=== PATIENT | female | born 2000 | race Two or more races ===

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

== ENCOUNTER 2022-07-25 21:04 | Emergency (ER) | payer OTHER ==
[2022-07-25 22:18] VITALS: BMI 26.2
[2022-07-25] MEDS ORDERED: ACETAMINOPHEN 1000 MG/100 ML BAG IVPB ONE (23:23)
[2022-07-25] MEDS ORDERED: SODIUM CHLORIDE 0.9% 500 ML INFUS.BAG IV ONE (23:23)
[2022-07-26] MEDS ORDERED: ACETAMINOPHEN INJECTION 100 ML IVPB ONE (00:13)
[2022-07-26 00:43] LABS: BASO % 0.4 % (0-2.0); EOS % 3.5 % (0-4.5); HEMATOCRIT 42.1 % (32.4-45.2); HEMOGLOBIN 14.3 GM/dL (10.7-15.3); MCH 30.4 pg (25.7-33.7); MEAN CELL VOLUME 89.5 fl (80-96); MEAN PLT VOLUME 7.1 fl (7.5-11.1); MONO % 8.9 % (3.8-10.2); NEUT % 54.2 % (42.8-82.8); PLATELET COUNT 286 10^3/uL (134-434); RBC 4.71 M/mm3 (3.60-5.2); WHITE BLOOD COUNT 10.5 K/mm3 (4.0-10.0)
[2022-07-26 01:02] LABS: CHLORIDE 105 mmol/L (98-107); SODIUM 139 mmol/L (136-145)
[2022-07-26 01:04] LABS: CALCIUM 9.2 mg/dL (8.5-10.1)
[2022-07-26 01:05] LABS: ALBUMIN 3.9 g/dl (3.4-5.0); ANION GAP 7 MMOL/L (8-16); BLOOD UREA NITROGEN 10.3 mg/dL (7-18); CO2 27 mmol/L (21-32); GLUCOSE,RANDOM 85 mg/dL (74-106); LIPASE 163 U/L (73-393); MAGNESIUM 2.1 mg/dL (1.8-2.4)
[2022-07-26 01:07] LABS: CREATININE 0.5 mg/dL (0.55-1.3); SGPT/ALT 27 U/L (13-61)
[2022-07-26 01:08] LABS: SGOT/AST 20 U/L (15-37)
[2022-07-26 01:09] LABS: BILIRUBIN,TOTAL 0.3 mg/dL (0.2-1); TOT PROT 7.4 g/dl (6.4-8.2)
[2022-07-26 01:10] LABS: ALK PHOS 66 U/L (45-117)
[2022-07-26 01:29] VITALS: BP 96/54; PULSE 79; RESP 16; TEMP 98.2
[2022-07-26 02:07] LABS: URINE APPEARANCE CLEAR; URINE BILIRUBIN NEGATIVE (NEGATIVE); URINE COLOR YELLOW; URINE GLUCOSE (UA) NEGATIVE (NEGATIVE); URINE KETONE 1+ (NEGATIVE); URINE LEUK ESTERASE NEGATIVE (NEGATIVE); URINE NITRITE NEGATIVE (NEGATIVE); URINE PROTEIN NEGATIVE (NEGATIVE); URINE UROBILINOGEN 0.2 mg/dL (0.2-1.0)
[2022-07-26 02:15] LABS: HCG,QUALITATIVE URINE Negative
== END 2022-07-26 05:33 | disposition home or self-care (01) ==
LOC: JER 21:04
PROC: 3E0333Z Introduction of Anti-inflammatory into Peripheral Vein, Percutaneous Approach (ICD-10-PCS; principal; 2022-07-25)
DX: N83.209 Unspecified ovarian cyst, unspecified side (principal)
CPT/HCPCS: 36415; 74177-TC; 76830-TC; 80053; 81003; 83690; 83735; 84702; 84703; 85025; 87077; 87086; 99285-25

== ENCOUNTER 2022-09-24 17:26 | Emergency (ER) | payer OTHER ==
[2022-09-24 17:54] VITALS: BP 96/66; PULSE 88; RESP 17; TEMP 98.2; BMI 27.2
[2022-09-24 19:53] LABS: BASO % 0.4 % (0-2.0); EOS % 4.6 % (0-4.5); HEMATOCRIT 40.3 % (32.4-45.2); HEMOGLOBIN 13.5 GM/dL (10.7-15.3); LYMPH % 34.2 % (8-40); MCH 30.3 pg (25.7-33.7); MCHC 33.6 g/dl (32.0-36.0); MEAN CELL VOLUME 90.3 fl (80-96); MEAN PLT VOLUME 7.2 fl (7.5-11.1); MONO % 8.2 % (3.8-10.2); NEUT % 52.6 % (42.8-82.8); PLATELET COUNT 306 10^3/uL (134-434); RBC 4.47 M/mm3 (3.60-5.2); RDW 13.2 % (11.6-15.6); WHITE BLOOD COUNT 8.7 K/mm3 (4.0-10.0)
[2022-09-24 19:57] LABS: EPI CELLS >36 /uL (0-25.1); HYALINE CASTS 3 /uL (0-3.1); URINE APPEARANCE CLEAR; URINE BACTERIA 1343 /uL (0-1359); URINE BILIRUBIN NEGATIVE (NEGATIVE); URINE COLOR YELLOW; URINE GLUCOSE (UA) NEGATIVE (NEGATIVE); URINE KETONE TRACE (NEGATIVE); URINE LEUK ESTERASE NEGATIVE (NEGATIVE); URINE NITRITE NEGATIVE (NEGATIVE); URINE PROTEIN NEGATIVE (NEGATIVE); URINE RBC 70 /uL (0-23.9); URINE UROBILINOGEN 0.2 mg/dL (0.2-1.0); URINE WBC 36 /uL (0-25.8)
[2022-09-24 19:58] LABS: HCG,QUALITATIVE URINE Negative
[2022-09-24 20:11] LABS: CALCIUM 8.9 mg/dL (8.5-10.1)
[2022-09-24 20:12] LABS: ALBUMIN 3.8 g/dl (3.4-5.0); BLOOD UREA NITROGEN 16.7 mg/dL (7-18); MAGNESIUM 2.1 mg/dL (1.8-2.4)
[2022-09-24 20:15] LABS: CREATININE 0.7 mg/dL (0.55-1.3); PHOSPHOROUS 3.7 mg/dL (2.5-4.9)
[2022-09-24 20:16] LABS: BILIRUBIN,TOTAL 0.3 mg/dL (0.2-1)
[2022-09-24 20:17] LABS: TOT PROT 7.2 g/dl (6.4-8.2)
== END 2022-09-24 21:14 | disposition home or self-care (01) ==
LOC: JER 17:26 → JERFT 17:26
DX: R53.83 Other fatigue (principal)
CPT/HCPCS: 0241U-QW; 36415; 80053; 81003; 83735; 84100; 84443; 84703; 85025; 86850; 86900; 86901; 99283-25

== ENCOUNTER 2023-05-14 21:50 | Emergency (ER) | payer OTHER ==
[2023-05-14 21:57] VITALS: BP 102/69; PULSE 83; RESP 18; TEMP 98.3; BMI 31.5
[2023-05-14] MEDS ORDERED: DIPHTH,PERTUSS(ACELL),TET 0.5 ML DISP.SYRIN IM ONE ×2 (23:36→23:38)
[2023-05-14] MEDS ORDERED: RABIES IMMUNE GLOBULIN 300 UNITS/1 ML VIAL IM ONE (23:42)
[2023-05-14] MEDS ORDERED: RABIES VACCINE (PCEC)/PF 2.5 UNIT/VIAL IM ONE ×2 (23:44→23:45)
[2023-05-14] MEDS ORDERED: RABIES IMMUNE GLOBULIN 300 UNITS/1 ML VIAL ONE (23:47)
[2023-05-15] MEDS ORDERED: RABIES IMMUNE GLOBULIN 300 UNITS/1 ML VIAL ONE (00:56)
[2023-05-15] MEDS ORDERED: AMOX TR/POT CLAV 875MG/125MG TABLETS (FP) PO ONE (01:05)
[2023-05-15] MEDS ORDERED: AMOX TR/POT CLAV 875MG/125MG TABLETS (FP) ONE (01:17)
== END 2023-05-15 01:18 | disposition home or self-care (01) ==
LOC: JERFT 21:50
PROC: 3E0234Z Introduction of Serum, Toxoid and Vaccine into Muscle, Percutaneous Approach (ICD-10-PCS; principal; 2023-05-14)
PROC: 3E0234Z Introduction of Serum, Toxoid and Vaccine into Muscle, Percutaneous Approach (ICD-10-PCS; 2023-05-14)
DX: S61.551A Open bite of right wrist, initial encounter (principal); S51.851A Open bite of right forearm, initial encounter; W55.01XA Bitten by cat, initial encounter
CPT/HCPCS: 90375; 90675; 90715

== ENCOUNTER 2023-05-28 21:28 | Emergency (ER) | payer OTHER ==
[2023-05-28 21:44] VITALS: BP 101/62; PULSE 72; RESP 18; TEMP 98; BMI 30.2
[2023-05-28] MEDS ORDERED: RABIES VACCINE (PCEC)/PF 2.5 UNIT/VIAL IM ONE ×2 (22:08→22:12)
== END 2023-05-28 22:27 | disposition home or self-care (01) ==
LOC: JERFT 21:28 → JER 21:28 → JERFT 22:27
PROC: 3E0234Z Introduction of Serum, Toxoid and Vaccine into Muscle, Percutaneous Approach (ICD-10-PCS; principal; 2023-05-28)
DX: Z23 Encounter for immunization (principal)
CPT/HCPCS: 90675; 99281-25

== ENCOUNTER 2023-08-20 17:58 | Emergency (ER) | payer OTHER ==
[2023-08-20 18:16] VITALS: BP 99/67; PULSE 98; RESP 24; TEMP 98.2; BMI 29.2
[2023-08-20] MEDS ORDERED: MAGNESIUM SULF 50% (8.12 MEQ/2 ML-1 GM VIAL) IVPB ONE (18:50)
[2023-08-20] MEDS ORDERED: methylPREDNISolone NA SUCC 125 MG/2 ML VIAL IVPUSH ONE (18:50)
[2023-08-20] MEDS ORDERED: MAGNESIUM SULFATE IN WATER 2 GM/50 ML IVPB IVPB ONE (19:31)
[2023-08-20] MEDS ORDERED: methylPREDNISolone NA SUCC 125 MG/2 ML VIAL ONE (19:31)
[2023-08-20] MEDS ORDERED: ALBUTEROL SO4 2.5/IPRATROPIUM 0.5 INH SOL 3 ML VIAL.NEB. NEB ONE (19:31)
[2023-08-20] MEDS: ALBUTEROL SO4 2.5/IPRATROPIUM 0.5 INH SOL 3 ML VIAL.NEB. NEB SCH ×2 (19:40→19:56)
[2023-08-20 19:44] LABS: BASO % 0.5 % (0-2.0); EOS % 5.1 % (0-4.5); HEMATOCRIT 43.3 % (32.4-45.2); HEMOGLOBIN 14.7 GM/dL (10.7-15.3); MCH 29.9 pg (25.7-33.7); MEAN CELL VOLUME 87.9 fl (80-96); MONO % 6.3 % (3.8-10.2); NEUT % 60.1 % (42.8-82.8); PLATELET COUNT 334 10^3/uL (134-434); RBC 4.93 M/mm3 (3.60-5.2); RDW 12.8 % (11.6-15.6); WHITE BLOOD COUNT 10.2 K/mm3 (4.0-10.0)
[2023-08-20 20:20] LABS: POTASSIUM 4.2 mmol/L (3.5-5.1)
[2023-08-20 20:21] LABS: CALCIUM 9.4 mg/dL (8.5-10.1)
[2023-08-20 20:22] LABS: BLOOD UREA NITROGEN 10.8 mg/dL (7-18); MAGNESIUM 2.1 mg/dL (1.8-2.4)
[2023-08-20 20:25] LABS: CREATININE 0.7 mg/dL (0.55-1.3)
[2023-08-20 20:26] LABS: BILIRUBIN,TOTAL 0.2 mg/dL (0.2-1)
[2023-08-20] MEDS ORDERED: ALBUTEROL SO4 0.083% IH SOL 2.5 MG/3 ML VIAL.NEB. NEB ONE ×2 (20:49→20:59)
[2023-08-20] MEDS ORDERED: ALBUTEROL SO4 HFA INHALER IH ONE ×2 (21:33→21:46)
== END 2023-08-20 22:33 | disposition home or self-care (01) ==
LOC: JER 17:58
PROC: 3E033GC Introduction of Other Therapeutic Substance into Peripheral Vein, Percutaneous Approach (ICD-10-PCS; principal; 2023-08-20)
PROC: 3E033GC Introduction of Other Therapeutic Substance into Peripheral Vein, Percutaneous Approach (ICD-10-PCS; 2023-08-20)
PROC: 3E0F7GC Introduction of Other Therapeutic Substance into Respiratory Tract, Via Natural or Artificial Opening (ICD-10-PCS; 2023-08-20)
PROC: 3E0F7GC Introduction of Other Therapeutic Substance into Respiratory Tract, Via Natural or Artificial Opening (ICD-10-PCS; 2023-08-20)
PROC: 3E0F7GC Introduction of Other Therapeutic Substance into Respiratory Tract, Via Natural or Artificial Opening (ICD-10-PCS; 2023-08-20)
DX: J45.901 Unspecified asthma with (acute) exacerbation (principal); R06.02 Shortness of breath; R05.9 Cough, unspecified; Z20.822 Contact with and (suspected) exposure to COVID-19
CPT/HCPCS: 0241U-QW; 36415; 71045-TC-FY; 80053; 83735; 84703; 85025; 94640; 96374; 96375; 99285-25

== ENCOUNTER 2023-12-10 17:28 | Emergency (ER) | payer OTHER ==
[2023-12-10 17:46] VITALS: BP 118/76; PULSE 80; RESP 20; TEMP 98.3; BMI 30.5
[2023-12-10 18:30] LABS: BASO % 0.4 % (0-2.0); EOS % 5.2 % (0-4.5); HEMATOCRIT 42.8 % (32.4-45.2); HEMOGLOBIN 14.3 GM/dL (10.7-15.3); LYMPH % 35.7 % (8-40); MCH 29.6 pg (25.7-33.7); MCHC 33.4 g/dl (32.0-36.0); MEAN CELL VOLUME 88.8 fl (80-96); MEAN PLT VOLUME 6.8 fl (7.5-11.1); MONO % 7.7 % (3.8-10.2); PH,URINE 7.5 (5.0-8.0); PLATELET COUNT 348 10^3/uL (134-434); RBC 4.82 M/mm3 (3.60-5.2); RDW 13.2 % (11.6-15.6); URINE APPEARANCE CLOUDY; URINE BILIRUBIN NEGATIVE (NEGATIVE); URINE COLOR YELLOW; URINE GLUCOSE (UA) NEGATIVE (NEGATIVE); URINE KETONE NEGATIVE (NEGATIVE); URINE LEUK ESTERASE NEGATIVE (NEGATIVE); URINE NITRITE NEGATIVE (NEGATIVE); URINE PROTEIN NEGATIVE (NEGATIVE); WHITE BLOOD COUNT 8.3 K/mm3 (4.0-10.0)
[2023-12-10 18:56] LABS: CALCIUM 9.1 mg/dL (8.5-10.1); CHLORIDE 107 mmol/L (98-107); SODIUM 139 mmol/L (136-145)
[2023-12-10 18:57] LABS: ALBUMIN 3.9 g/dl (3.4-5.0); ANION GAP 5 mmol/L (4-13); BLOOD UREA NITROGEN 7.2 mg/dL (7-18); CO2 27 mmol/L (21-32); GLUCOSE,RANDOM 91 mg/dL (74-106)
[2023-12-10 19:00] LABS: CREATININE 0.6 mg/dL (0.55-1.3); SGOT/AST 34 U/L (15-37); SGPT/ALT 63 U/L (13-61)
[2023-12-10 19:01] LABS: TOT PROT 7.7 g/dl (6.4-8.2)
[2023-12-10 19:02] LABS: BILIRUBIN,TOTAL 0.3 mg/dL (0.2-1)
[2023-12-10 19:03] LABS: ALK PHOS 78 U/L (45-117)
== END 2023-12-10 20:08 | disposition home or self-care (01) ==
LOC: JER 17:28
DX: M54.50 Low back pain, unspecified (principal); R10.2 Pelvic and perineal pain; N91.2 Amenorrhea, unspecified
CPT/HCPCS: 36415; 80053; 81003; 84702; 84703; 85025; 87077; 87086; 99283-25

== ENCOUNTER 2024-03-26 01:35 | Emergency (ER) | payer OTHER ==
[2024-03-26 02:00] VITALS: BP 104/66; PULSE 84; RESP 18; TEMP 97.9; BMI 31.1
[2024-03-26] MEDS ORDERED: ACETAMINOPHEN 500 MG TABLET (FP) ONE (02:28)
[2024-03-26] MEDS: ACETAMINOPHEN 500 MG TABLET (FP) PO ONE (02:29)
[2024-03-26 02:35] LABS: EPI CELLS 11 /uL (0-25.1); HYALINE CASTS 0 /uL (0-3.1); PH,URINE 5.5 (5.0-8.0); URINE APPEARANCE CLEAR; URINE BACTERIA 158 /uL (0-1359); URINE BILIRUBIN NEGATIVE (NEGATIVE); URINE COLOR YELLOW; URINE GLUCOSE (UA) NEGATIVE (NEGATIVE); URINE KETONE TRACE (NEGATIVE); URINE LEUK ESTERASE NEGATIVE (NEGATIVE); URINE NITRITE NEGATIVE (NEGATIVE); URINE PROTEIN NEGATIVE (NEGATIVE); URINE RBC 26 /uL (0-23.9); URINE UROBILINOGEN 0.2 mg/dL (0.2-1.0); URINE WBC 12 /uL (0-25.8)
[2024-03-26] MEDS: ONDANSETRON *ODT* 4 MG TABLET SL ONE (02:37)
[2024-03-26] MEDS ORDERED: ONDANSETRON *ODT* 4 MG TABLET ONE (02:37)
[2024-03-26 02:44] LABS: HCG,QUALITATIVE URINE Positive
[2024-03-26 02:46] LABS: BASO % 0.4 % (0-2.0); EOS % 4.7 % (0-4.5); HEMATOCRIT 39.8 % (32.4-45.2); HEMOGLOBIN 13.8 GM/dL (10.7-15.3); LYMPH % 44.4 % (8-40); MCH 29.9 pg (25.7-33.7); MCHC 34.6 g/dl (32.0-36.0); MEAN CELL VOLUME 86.4 fl (80-96); MEAN PLT VOLUME 6.8 fl (7.5-11.1); MONO % 7.7 % (3.8-10.2); NEUT % 42.8 % (42.8-82.8); PLATELET COUNT 309 10^3/uL (134-434); RBC 4.61 M/mm3 (3.60-5.2); WHITE BLOOD COUNT 8.1 K/mm3 (4.0-10.0)
[2024-03-26 03:03] LABS: POTASSIUM 3.8 mmol/L (3.5-5.1)
[2024-03-26 03:05] LABS: ALBUMIN 3.7 g/dl (3.4-5.0); BLOOD UREA NITROGEN 6.9 mg/dL (7-18); CALCIUM 8.6 mg/dL (8.5-10.1)
[2024-03-26] MEDS ORDERED: CEPHALEXIN MONOHYDRATE 500 MG CAPSULE (UD) ONE (03:07)
[2024-03-26 03:08] LABS: CREATININE 0.6 mg/dL (0.55-1.3)
[2024-03-26] MEDS: CEPHALEXIN MONOHYDRATE 500 MG CAPSULE (UD) PO ONE (03:08)
[2024-03-26 03:10] LABS: BILIRUBIN,TOTAL 0.4 mg/dL (0.2-1); TOT PROT 7.1 g/dl (6.4-8.2)
== END 2024-03-26 03:41 | disposition home or self-care (01) ==
LOC: JER 01:35
DX: O23.40 Unspecified infection of urinary tract in pregnancy, unspecified trimester (principal); O26.899 Other specified pregnancy related conditions, unspecified trimester; R10.31 Right lower quadrant pain; R10.32 Left lower quadrant pain; O99.891 Other specified diseases and conditions complicating pregnancy; R35.0 Frequency of micturition; M54.50 Low back pain, unspecified; R11.0 Nausea; Z3A.00 Weeks of gestation of pregnancy not specified
CPT/HCPCS: 36415; 80053; 81003; 84703; 85025; 86850; 86900; 86901; 87086; 99283-25; Q0162

== ENCOUNTER 2024-04-08 08:36 | Emergency (ER) | payer OTHER ==
[2024-04-08 08:40] VITALS: BP 105/72; PULSE 86; RESP 18; TEMP 98.5; BMI 31.3
[2024-04-08 10:27] LABS: HCG,QUALITATIVE URINE Positive
[2024-04-08 10:31] LABS: BASO % 0.5 % (0-2.0); EOS % 3.9 % (0-4.5); HEMATOCRIT 39.9 % (32.4-45.2); MCH 30.2 pg (25.7-33.7); MEAN CELL VOLUME 86.2 fl (80-96); MEAN PLT VOLUME 6.8 fl (7.5-11.1); NEUT % 55.6 % (42.8-82.8); PLATELET COUNT 291 10^3/uL (134-434); RBC 4.64 M/mm3 (3.60-5.2); RDW 13.7 % (11.6-15.6); WHITE BLOOD COUNT 6.8 K/mm3 (4.0-10.0)
[2024-04-08 10:34] LABS: EPI CELLS 28 /uL (0-25.1); HYALINE CASTS 1 /uL (0-3.1); PH,URINE 6.5 (5.0-8.0); URINE APPEARANCE CLEAR; URINE BACTERIA 416 /uL (0-1359); URINE BILIRUBIN NEGATIVE (NEGATIVE); URINE COLOR YELLOW; URINE GLUCOSE (UA) NEGATIVE (NEGATIVE); URINE KETONE 1+ (NEGATIVE); URINE LEUK ESTERASE NEGATIVE (NEGATIVE); URINE NITRITE NEGATIVE (NEGATIVE); URINE PROTEIN NEGATIVE (NEGATIVE); URINE RBC 59 /uL (0-23.9); URINE UROBILINOGEN 0.2 mg/dL (0.2-1.0); URINE WBC 13 /uL (0-25.8)
[2024-04-08 10:59] LABS: POTASSIUM 3.7 mmol/L (3.5-5.1)
[2024-04-08 11:00] LABS: CALCIUM 9.1 mg/dL (8.5-10.1)
[2024-04-08 11:01] LABS: ALBUMIN 3.6 g/dl (3.4-5.0); BLOOD UREA NITROGEN 7.8 mg/dL (7-18)
[2024-04-08 11:04] LABS: CREATININE 0.5 mg/dL (0.55-1.3)
[2024-04-08 11:06] LABS: BILIRUBIN,TOTAL 0.4 mg/dL (0.2-1)
== END 2024-04-08 14:44 | disposition home or self-care (01) ==
LOC: JER 08:36
DX: O20.0 Threatened abortion (principal); O99.891 Other specified diseases and conditions complicating pregnancy; M54.50 Low back pain, unspecified; R35.0 Frequency of micturition; Z3A.10 10 weeks gestation of pregnancy
CPT/HCPCS: 36415; 76817-TC; 80053; 81003; 84702; 84703; 85025; 86850; 86900; 86901; 87070; 87086; 87205; 87491; 87591; 87661; 99284-25

== ENCOUNTER 2024-04-10 18:07 | Emergency (ER) | payer OTHER ==
[2024-04-10 18:11] VITALS: BP 101/65; PULSE 87; RESP 18; TEMP 98.5; BMI 31.3
== END 2024-04-10 20:38 | disposition home or self-care (01) ==
LOC: JERFT 18:07 → JER 18:07 → JERFT 20:38
DX: O26.851 Spotting complicating pregnancy, first trimester (principal); Z3A.01 Less than 8 weeks gestation of pregnancy
CPT/HCPCS: 36415; 84702; 99283-25

== ENCOUNTER 2024-05-22 01:45 | Emergency (ER) | payer OTHER ==
[2024-05-22 02:00] VITALS: BP 113/77; PULSE 90; RESP 18; TEMP 98; BMI 31.3
[2024-05-22] MEDS ORDERED: ACETAMINOPHEN INJECTION 100 ML ONE (03:25)
[2024-05-22] MEDS: ACETAMINOPHEN 1000 MG/100 ML BAG IVPB ONE (03:51)
[2024-05-22 04:10] LABS: BASO % 0.2 % (0-2.0); HEMATOCRIT 40.9 % (32.4-45.2); HEMOGLOBIN 14.1 GM/dL (10.7-15.3); LYMPH % 21.7 % (8-40); MCH 30.3 pg (25.7-33.7); MCHC 34.4 g/dl (32.0-36.0); MEAN CELL VOLUME 88.2 fl (80-96); MEAN PLT VOLUME 7.3 fl (7.5-11.1); MONO % 6.4 % (3.8-10.2); NEUT % 68.7 % (42.8-82.8); PLATELET COUNT 308 10^3/uL (134-434); RBC 4.64 M/mm3 (3.60-5.2); RDW 13.5 % (11.6-15.6); WHITE BLOOD COUNT 8.3 K/mm3 (4.0-10.0)
[2024-05-22 04:18] LABS: PROTHROMBIN TIME (PATIENT) 11.5 SEC (9.7-13.0)
[2024-05-22 04:28] LABS: POTASSIUM 3.8 mmol/L (3.5-5.1)
[2024-05-22 04:30] LABS: CALCIUM 9.3 mg/dL (8.5-10.1)
[2024-05-22 04:31] LABS: ALBUMIN 3.3 g/dl (3.4-5.0); BLOOD UREA NITROGEN 4.6 mg/dL (7-18)
[2024-05-22 04:34] LABS: CREATININE 0.4 mg/dL (0.55-1.3)
[2024-05-22 04:36] LABS: VENOUS BASE EXCESS -2.3 mmol/L (-2-2); VENOUS O2 SATURATION 73.9 % (70-80); VENOUS PCO2 41.5 mmHg (38-52); VENOUS PH 7.361 (7.310-7.410)
[2024-05-22 04:36] LABS: BILIRUBIN,TOTAL 0.3 mg/dL (0.2-1); TOT PROT 6.7 g/dl (6.4-8.2)
[2024-05-22 04:39] LABS: PH,URINE 5.5 (5.0-8.0); URINE APPEARANCE CLEAR; URINE BILIRUBIN NEGATIVE (NEGATIVE); URINE COLOR YELLOW; URINE GLUCOSE (UA) NEGATIVE (NEGATIVE); URINE KETONE 3+ (NEGATIVE); URINE LEUK ESTERASE NEGATIVE (NEGATIVE); URINE NITRITE NEGATIVE (NEGATIVE); URINE PROTEIN NEGATIVE (NEGATIVE); URINE UROBILINOGEN 0.2 mg/dL (0.2-1.0)
== END 2024-05-22 06:19 | disposition home or self-care (01) ==
LOC: JER 01:45
PROC: 3E033NZ Introduction of Analgesics, Hypnotics, Sedatives into Peripheral Vein, Percutaneous Approach (ICD-10-PCS; principal; 2024-05-22)
DX: O99.891 Other specified diseases and conditions complicating pregnancy (principal); R07.9 Chest pain, unspecified; R05.9 Cough, unspecified; Z3A.13 13 weeks gestation of pregnancy; Z20.822 Contact with and (suspected) exposure to COVID-19
CPT/HCPCS: 0241U-QW; 36415; 71045-TC-FY; 80053; 81003; 82803; 83880; 84484; 85025; 85379; 85610; 85730; 86850; 86900; 86901; 87086; 93005; 93010; 99285-25; J0131

== ENCOUNTER 2024-11-23 14:34 | Inpatient (IN) | payer OTHER ==
[~2024-11-23 14:34] MED LIST: AMPICILLIN - 1 GM in SODIUM CHLORIDE 100 ML IVPB SCH
[2024-11-23 15:39] VITALS: BMI 32.1
[2024-11-23 15:49] LABS: ABSOLUTE IMMATURE GRANULOCYTES 0.06 x10^3/uL (0.0-0.031); BASOPHILS # 0.03 x10^3/uL (0.01-0.08); EOSINOPHIL % 1.5 % (0.7-5.8); EOSINOPHILS # 0.13 x10^3/uL (0.04-0.36); HEMATOCRIT 43.6 % (34.1-44.9); HEMOGLOBIN 14.4 g/dL (11.2-15.7); MEAN CELL VOLUME 88.6 fl (79.4-94.8); MEAN PLT VOLUME 9.6 fl (9.4-12.3); MONOCYTE # 0.69 x10^3/uL (0.24-0.86); MONOCYTE % 7.8 % (4.7-12.5); PLATELET COUNT 241 x10^3/uL (182-369); RDW 14.3 % (12.1-16.5)
[2024-11-23 15:58] LABS: INR 0.97 (0.83-1.09); PROTHROMBIN TIME (PATIENT) 10.6 SEC (9.7-13.0)
[2024-11-23 16:01] LABS: ACTIVATED PTT 29.1 SECONDS (25.2-36.5)
[2024-11-23 16:32] LABS: POTASSIUM 3.9 mmol/L (3.5-5.1)
[2024-11-23 16:37] LABS: CREATININE 0.4 mg/dL (0.55-1.3)
[2024-11-23] MEDS: DINOPROSTONE 10 MG VAGINAL SUPPOSITORY VG ONE (16:50)
[2024-11-23] MEDS: ELECTROLYTE-148 SOLN 1,000 ML IV SCH (23:20)
[2024-11-24] MEDS ORDERED: AMPICILLIN SODIUM 2 GM VIAL ONE
[2024-11-24] MEDS: AMPICILLIN - 2 GM in SODIUM CHLORIDE 100 ML IVPB ONE
[2024-11-24] MEDS ORDERED: PROMETHAZINE HCL 25 MG/1 ML VIAL ONE (01:00)
[2024-11-24] MEDS ORDERED: BUTORPHANOL TARTRATE 2 MG/ML VIAL ONE (01:00)
[2024-11-24] MEDS: BUTORPHANOL TARTRATE 2 MG/ML VIAL IVPB ONE (01:05)
[2024-11-24] MEDS: PROMETHAZINE HCL 25 MG/1 ML VIAL IVPB ONE (01:05)
[2024-11-24] MEDS ORDERED: AMPICILLIN SODIUM 1 GM VIAL ONE ×4 (03:56→15:16)
[2024-11-24] MEDS: AMPICILLIN - 1 GM in SODIUM CHLORIDE 100 ML IVPB SCH (04:00)
[2024-11-24] MEDS ORDERED: SODIUM CHLORIDE 100 ML IVPB ONE ×3 (07:21→15:16)
[2024-11-24] MEDS ORDERED: OXYTOCIN 30 UNITS in 0.9% NS 30 UNIT/500 ML INFUS.BAG IVPB ONE (09:28)
[2024-11-24] MEDS ORDERED: FENTANYL/BUPIVACAINE/NS/PF - PCEA - 50 ML DISP.SYRIN EP ONE ×2 (10:02→14:34)
[2024-11-24] MEDS: OXYTOCIN 30 UNITS in 0.9% NS 30 UNIT/500 ML INFUS.BAG IVPB SCH (10:30)
[2024-11-24] MEDS ORDERED: NALOXONE HCL 0.4 MG/ML VIAL IVPUSH PRN (10:34)
[2024-11-24] MEDS: FENTANYL/BUPIVACAINE/NS/PF - PCEA - 50 ML DISP.SYRIN EP SCH (10:49)
[2024-11-24] MEDS ORDERED: OXYTOCIN 20 UNITS in 0.9% NS 20 UNIT/1,000 ML INFUS.BAG IV ONE (16:34)
[2024-11-24] MEDS ORDERED: BENZOCAINE 28 GM HEMORRHOIDAL OINTMENT TP PRN (16:37)
[2024-11-24] MEDS ORDERED: BISACODYL 10 MG SUPP.RECT RC PRN (16:37)
[2024-11-24] MEDS: OXYTOCIN 20 UNITS in 0.9% NS 20 UNIT/1,000 ML INFUS.BAG IV SCH (16:59)
[2024-11-24 19:17] VITALS: RESP 18
[2024-11-24] MEDS: ACETAMINOPHEN 325 MG TABLET (FP) PO PRN (20:44)
[2024-11-24] MEDS: WITCH HAZEL 50% (TUCKS) 40 PAD/JAR PAD TP PRN (20:44)
[2024-11-24] MEDS: BENZOCAINE 20% 57 GM BOTTLE TP PRN (20:44)
[2024-11-25 06:51] LABS: ABSOLUTE IMMATURE GRANULOCYTES 0.04 x10^3/uL (0.0-0.031); BASOPHILS # 0.02 x10^3/uL (0.01-0.08); HEMATOCRIT 40.4 % (34.1-44.9); HEMOGLOBIN 13.2 g/dL (11.2-15.7); MCHC 32.7 g/dl (32.2-35.5); MEAN CELL VOLUME 90.6 fl (79.4-94.8); MEAN PLT VOLUME 9.1 fl (9.4-12.3); MONOCYTE # 0.73 x10^3/uL (0.24-0.86); MONOCYTE % 7.4 % (4.7-12.5); PLATELET COUNT 206 x10^3/uL (182-369); RDW 14.2 % (12.1-16.5)
[2024-11-25] MEDS: IBUPROFEN 600 MG TABLET (FP) PO PRN (09:20)
[2024-11-25] MEDS: DIPHTH,PERTUSS(ACELL),TET 0.5 ML DISP.SYRIN IM ONE (09:21)
[2024-11-25] MEDS: FLU VACCINE (FLULAVAL) PF 45 MCG/0.5 ML SYRINGE 2024-2025 IM ONE (09:21)
[2024-11-26 10:45] VITALS: BP 105/68; PULSE 87; TEMP 97.5
== END 2024-11-26 13:20 | disposition home or self-care (01) | DRG 560 ==
LOC: JLDR 14:34 → J3W 11-24 19:19
PROVIDERS: ADMIT Obstetrics & Gynecology; ATTEND Obstetrics & Gynecology
PROC: 10E0XZZ Delivery of Products of Conception, External Approach (ICD-10-PCS; principal; 2024-11-24)
PROC: 0UQMXZZ Repair Vulva, External Approach (ICD-10-PCS; 2024-11-24)
PROC: 0W8NXZZ Division of Female Perineum, External Approach (ICD-10-PCS; 2024-11-24)
DX: O41.03X0 Oligohydramnios, third trimester, not applicable or unspecified (principal); O71.82 Other specified trauma to perineum and vulva; Z3A.40 40 weeks gestation of pregnancy; Z37.0 Single live birth
CPT/HCPCS: 36415; 59409; 71046-TC-FY; 80048; 85025; 85610; 85730; 86780; 86850; 86900; 86901; 90656; 90715; G0008